=== PATIENT | female | born 1985 | race Two or more races ===

== ENCOUNTER 2020-08-25 13:17 | Emergency (ER) | payer OTHER ==
[~2020-08-25] VITALS: Ht 160 cm; Wt 99.0 kg
[2020-08-25 13:27] VITALS: BP 132/80
[2020-08-25] MEDS ORDERED: SULF1TAB24 PO (15:01)
[2020-08-25] MEDS ORDERED: MUPI15CR8 TP (15:04)
--- NOTE | 2020-08-25 15:04 | PHYS DOC ---
Past History Past Medical History: Other Additional Past Medical Histor: PTSD Past Surgical History: No Surgical History Alcohol Use: None General Adult EDM: Chief Complaint: MEDICAL CLEARANCE HPI: HPI: Patient is a 34-year-old female presents with sores to her right wrist, left elbow, and bilateral toes. Patient states the sores appeared 2 weeks ago and have been painful and itchy. Patient states that she is putting peroxide on the sores at home and tried to cover them. Patient denies fever. Patient reports being methamphetamine user. Patient is here being seen for medical clearance prior to being released to the shelter. Review of Systems: Review of Systems: Constitutional: Denies fever or chills Eyes: Denies change in visual acuity HENT: Denies nasal congestion or sore throat Respiratory: Denies cough or shortness of breath Cardiovascular: Denies chest pain or edema GI: Denies abdominal pain, nausea, vomiting, bloody stools or diarrhea : Denies dysuria Musculoskeletal: Denies back pain or joint pain Integument: Sores to right wrist, left elbow, bilateral toes Neurologic: Denies headache, focal weakness or sensory changes Endocrine: Denies polyuria or polydipsia Lymphatic: Denies swollen glands Psychiatric: Denies depression or anxiety Allergies: Allergies: Allergies Coded Allergies Type Severity Reaction Last Updated Verified escitalopram Allergy Unknown 08/25/20 Yes Physical Exam: PE: Constitutional: Well developed, well nourished, no acute distress, non-toxic appearance. [] HENT: Normocephalic, atraumatic, bilateral external ears normal, oropharynx moist, no oral exudates, nose normal. [] Eyes: PERRLA, EOMI, conjunctiva normal, no discharge. [] Neck: Normal range of motion, no tenderness, supple, no stridor. [] Cardiovascular:Heart rate regular rhythm, no murmur [] Lungs & Thorax: Bilateral breath sounds clear to auscultation [] Abdomen: Bowel sounds normal, soft, no tenderness, no masses, no pulsatile mass es. [] Skin: Purulent cellulitis, redness to bilateral toes. Red sore to right breast and left elbow. Back: No tenderness, no CVA tenderness. [] Extremities: No tenderness, no cyanosis, no clubbing, ROM intact, no edema. [] Neurologic: Alert and oriented X 3, normal motor function, normal sensory function, no focal deficits noted. [] Psychologic: Affect normal, judgement normal, mood normal. [] Current Patient Data: Vital Signs: Vital Signs Date Time Temp Pulse Resp B/P (MAP) Pulse Ox O2 Delivery O2 Flow Rate FiO2 08/25/20 13:27 98.9 110 20 132/80 (97) 100 Room Air EKG: EKG: [] Radiology/Procedures: Radiology/Procedures: [] Heart Score: Risk Factors: Risk Factors: DM, Current or recent (<one month) smoker, HTN, HLP, family history of CAD, obesity. Risk Scores: Score 0 - 3: 2.5% MACE over next 6 weeks - Discharge Home Score 4 - 6: 20.3% MACE over next 6 weeks - Admit for Clinical Observation Score 7 - 10: 72.7% MACE over next 6 weeks - Early Invasive Strategies Course & Med Decision Making: Course & Med Decision Making Pertinent Labs and Imaging studies reviewed. (See chart for details) []Patient is a 34-year-old female presents with sores to her right wrist, left elbow, and bilateral toes. Patient states the sores appeared 2 weeks ago and have been painful and itchy. Patient states that she is putting peroxide on the sores at home and tried to cover them. Patient denies fever. Patient reports being methamphetamine user. Patient is here being seen for medical clearance prior to being released to the shelter. Patient dcd home with bactroban and bactrim for skin infection. Jessie Disclaimer: Jessie Disclaimer: This electronic medical record was generated, in whole or in part, using a voice recognition dictation system. Departure Departure: Impression: Primary Impression: Skin infection Disposition: DC/TRF OTHER TYPE INSTITUTI Condition: GOOD Referrals: PCP,NO (PCP) Patient Instructions: Skin Infections Additional Instructions: EMERGENCY DEPARTMENT GENERAL DISCHARGE INSTRUCTIONS Thank you for coming to [facility] (ED) today and trusting us with you care. We trust that you had a positivie experience in our Emergency Department. If you wish to speak to the department management, you may call the director at [phone]. YOUR FOLLOW UP INSTRUCTIONS ARE FOLLOWS: 1. Do you have a private Doctor? If you do not have a private doctor, please ask for a resource list of physicians or clinics that may be able to assist you with follow up care. 2. The Emergency Physician has interpreted your x-rays. The X-Ray specialist will also review them. If there is a change in the findings, you will be notified in 48 hours when at all possible. 3. A lab test or culture has been done, your results will be reviewed and you will be notified if you need a change in treatment. ADDITIONAL INSTRUCTIONS AND INFORMATION: 1. Your care today has been supervised by a physician who is specially trained in emergency care. Many problems require more than one evaluation for a complete diagnosis and treatment. We recommend that you schedule your follow up appointment as recommended to ensure complete treatment of you illness or injury. If you are unable to obtain follow up care and continue to have a problem, or if your condition worsens, we recommend that you return to the ED. 2. We are not able to safely determine your condition over the phone nor are we able to give sound medical advice over the phone. For these safety reasons, if you call for medical advice we will ask you to come to the ED for further evaluation. 3. If you have any questions regarding these discharge instructions please call the ED at [phone]. SAFETY INFORMATION: In the interest of safety, wellness, and injury prevention; we encourage you to wear your sealbelt, if you smoke; quite smoking, and we encourage family to use a protective helmet for bicycling and other sporting events that present an increased risk for head injury. IF YOUR SYMPTOMS WORSEN OR NEW SYMPTOMS DEVELOP, OR YOU HAVE CONCERNS ABOUT YOUR CONDITION; OR IF YOUR CONDITION WORSENS WHILE YOU ARE WAITING FOR YOUR FOLLOW UP APPOINTMENT; EITHER CONTACT YOUR PRIMARY CARE DOCTOR, THE PHYSICIAN WHOSE NAME AND NUMBER YOU WERE GIVEN, OR RETURN TO THE ED IMMEDIATELY. Scripts Mupirocin Calcium (MUPIROCIN) 15 Gm Cream..g. 1 SINTIA TP TID for infection for 7 Days, #15 GM 0 Refills Prov: JAMIE MUNOZ APRN 08/25/20 Sulfamethoxazole/Trimethoprim (BACTRIM DS TABLET) 1 Each Tablet 1 EACH PO BID for skin infection for 7 Days, #14 TAB Take 1 p.o. twice daily for 7 days. Prov: JAMIE MUNOZ APRN 08/25/20 JAMIE MUNOZ APRN Aug 25, 2020 15:04
== END 2020-08-25 15:17 | disposition short-term general hospital (02) ==
LOC: ER 13:17
DX: L08.89 Other specified local infections of the skin and subcutaneous tissue (principal); L29.9 Pruritus, unspecified; F43.10 Post-traumatic stress disorder, unspecified; Z88.8 Allergy status to other drugs, medicaments and biological substances
CPT/HCPCS: 99285

== ENCOUNTER 2021-02-24 18:31 | Emergency (ER) | payer SELFPAY ==
[~2021-02-24] VITALS: Ht 160 cm; Wt 95.4 kg
[2021-02-24 18:31] VITALS: BP 118/70
[~2021-02-24 18:31] MED LIST: MUPI15CR8 TP; SULF1TAB24 PO
--- NOTE | 2021-02-24 19:19 | PHYS DOC ---
Past History Past Medical History: Other Additional Past Medical Histor: PTSD Past Surgical History: No Surgical History Alcohol Use: None General Adult EDM: Chief Complaint: SORE THROAT HPI: HPI: Patient is a 35-year-old female who presents to the ER today for sore/swollen throat, yellow productive cough, fever that started 2 days ago. Patient reports that her temperature at home was 100.3 degrees. She reports receiving only one of her Covid vaccines. Patient denies fevers, nausea, vomiting, diarrhea, sick contacts, travel, difficulty swallowing, phonation changes, difficulty ma intaining secretions, chest pain. She reports that she is short of breath but she thinks that is due to her drug use. Patient reports that she recently relapsed and is anxious. Review of Systems: Review of Systems: 14 body systems of the review of systems have been reviewed. See HPI for pertinent positive and negative responses, otherwise all other systems are negative, nonpertinent or noncontributory Allergies: Allergies: Allergies Coded Allergies Type Severity Reaction Last Updated Verified escitalopram Allergy Unknown 08/25/20 Yes Physical Exam: PE: Constitutional: Well developed, well nourished, no acute distress, non-toxic appearance. [] HENT: Normocephalic, atraumatic, bilateral external ears normal, oropharynx moist with mild erythema, no tonsillar enlargement, postnasal drainage present, no oral exudates, nose normal, ulceration noted to the left side of patient's tongue, no trismus, uvula midline, no phonation changes [] Eyes: PERRLA, conjunctiva normal, no discharge. [] Neck: Normal range of motion, no tenderness, supple, no stridor. Right tonsillar lymphadenopathy [] Cardiovascular:Heart rate regular rhythm, no murmur [] Lungs & Thorax: Bilateral breath sounds clear to auscultation [] Abdomen: Bowel sounds normal, soft, no tenderness, no masses, no pulsatile masses. [] Skin: Warm, dry, no erythema, no rash. [] Back: Normal range of motion Extremities: No tenderness, no cyanosis, no clubbing, ROM intact, no edema. [] Neurologic: Alert and oriented X 3, normal motor function, normal sensory function, no focal deficits noted. [] Psychologic: Affect normal, judgement normal, mood normal. [] Current Patient Data: Vital Signs: Vital Signs Date Time Temp Pulse Resp B/P (MAP) Pulse Ox O2 Delivery O2 Flow Rate FiO2 02/24/21 18:31 98.1 90 20 118/70 98 Room Air EKG: EKG: [] Radiology/Procedures: Radiology/Procedures: [] Heart Score: C/O Chest Pain: No Risk Factors: Risk Factors: DM, Current or recent (<one month) smoker, HTN, HLP, family history of CAD, obesity. Risk Scores: Score 0 - 3: 2.5% MACE over next 6 weeks - Discharge Home Score 4 - 6: 20.3% MACE over next 6 weeks - Admit for Clinical Observation Score 7 - 10: 72.7% MACE over next 6 weeks - Early Invasive Strategies Course & Med Decision Making: Course & Med Decision Making Pertinent Labs and Imaging studies reviewed. (See chart for details) Patient is a 35-year-old female being seen in the ER today for sore/swollen throat, yellow productive cough, and fever. She was tested in the ER for strep throat and COVID-19. The rapid strep test was negative. The Covid test is pending and patient will be notified of results when they are available. She is educated on self-isolation pending the results of this test. Air Button Disclaimer: Air Button Disclaimer: This electronic medical record was generated, in whole or in part, using a voice recognition dictation system. Departure Departure: Impression: Primary Impression: Pharyngitis with viral syndrome Disposition: HOME / SELF CARE / HOMELESS Condition: GOOD Referrals: PCP,NO (PCP) Patient Instructions: Viral Pharyngitis Additional Instructions: Thank you for choosing [facility] and allowing me to participate in your care. As we have discussed, your findings indicate viral pharyngitis. At this time we cannot rule out a COVID-19 infection. We will contact you with the results of your COVID-19 and throat culture when they are received they usually come back into days. Please self isolate until you receive your results. As we have discussed, the treatment includes Tylenol and ibuprofen for pain and fevers, warm salt water gargles. Please follow up with your primary care provider tomorrow regarding your ER visit. If your symptoms worsen or you develop difficulty swallowing, difficulty maintaining secretions, high fever, shortness of breath, chest pain, please return. ANA CROWELL LARD REFINER Feb 24, 2021 19:19
== END 2021-02-24 19:52 | disposition home or self-care (01) ==
LOC: ER 18:31
DX: J02.8 Acute pharyngitis due to other specified organisms (principal); B97.89 Other viral agents as the cause of diseases classified elsewhere; Z20.822 Contact with and (suspected) exposure to COVID-19; Z88.8 Allergy status to other drugs, medicaments and biological substances
CPT/HCPCS: 87070; 87880; 99283; C9803; U0003

== ENCOUNTER 2021-03-09 13:30 | Emergency (ER) | payer SELFPAY ==
[~2021-03-09] VITALS: Ht 157.5 cm; Wt 95.5 kg
[2021-03-09 13:30] VITALS: BP 140/77
--- NOTE | 2021-03-09 14:18 | PHYS DOC ---
Past History Past Medical History: Anxiety, Depression, Other Additional Past Medical Histor: PTSD (CARISA LANDRY Sam SPANISH TRANSLATOR) Past Surgical History: No Surgical History (CARISA LANDRY Sam SPANISH TRANSLATOR) Alcohol Use: None (CARISA LANDRY Sam SPANISH TRANSLATOR) Adult General Chief Complaint Chief Complaint: SORE THROAT HPI HPI Patient is a 35-year-old female patient with history of anxiety, depression, who presents to the ED today complaining of sore throat intermittently for 1-1/2 weeks. Patient denies any difficulty with swallowing. Denies any fever. She states there is a new Covid virus involving and she would like to be tested for it. She also states she has been on and off her psych medicines. She states she currently feels a little agitated because of this. She is requesting to go to psych. Denies any suicidal or homicidal ideations. (CARISA LANDRY Sam SPANISH TRANSLATOR) Review of Systems Review of Systems Constitutional: Denies fever or chills [] Eyes: Denies change in visual acuity, redness, or eye pain [] HENT: Reports sore throat. Denies nasal congestion Respiratory: Denies cough or shortness of breath [] Cardiovascular: No additional information not addressed in HPI [] GI: Denies abdominal pain, nausea, vomiting, bloody stools or diarrhea [] : Denies dysuria or hematuria [] Musculoskeletal: Denies back pain or joint pain [] Integument: Denies rash or skin lesions [] Neurologic: Denies headache, focal weakness or sensory changes [] Psych: Reports agitation All other systems were reviewed and found to be within normal limits, except as documented in this note. (CARISA LANDRY Sam SPANISH TRANSLATOR) Allergies Allergies Allergies Coded Allergies Type Severity Reaction Last Updated Verified escitalopram Allergy Unknown 08/25/20 Yes (GRISCAIRSA Sam SPANISH TRANSLATOR) Physical Exam Physical Exam Constitutional: Well developed, well nourished, no acute distress, non-toxic appearance. [] HENT: Normocephalic, atraumatic, bilateral external ears normal, oropharynx moist, no oral exudates, nose normal. [] Eyes: PERRLA, EOMI, conjunctiva normal, no discharge. [] Neck: Normal range of motion, no tenderness, supple, no stridor. [] Cardiovascular:Heart rate regular rhythm, no murmur [] Lungs & Thorax: Bilateral breath sounds clear to auscultation [] Abdomen: Bowel sounds normal, soft, no tenderness, no masses, no pulsatile masses. [] Skin: Warm, dry, no erythema, no rash. [] Back: No tenderness, no CVA tenderness. [] Extremities: No tenderness, no cyanosis, no clubbing, ROM intact, no edema. [] Neurologic: Alert and oriented X 3, normal motor function, normal sensory function, no focal deficits noted. [] Psychologic: Flat affect, appears anxious (CARISA LANDRY APRN) EKG EKG [] (CARISA LANDRY APRN) Radiology/Procedures Radiology/Procedures [] (CARISA LANDRY APRN) Heart Score C/O Chest Pain: N/A Risk Factors: Risk Factors: DM, Current or recent (<one month) smoker, HTN, HLP, family history of CAD, obesity. Risk Scores: Risk Factors: DM, Current or recent (<one month) smoker, HTN, HLP, family history of CAD, obesity. (CARISA LANDRY APRN) Course & Med Decision Making Course & Med Decision Making Pertinent Labs and Imaging studies reviewed. (See chart for details) This is a 35-year-old female patient presenting to the ED today with sore throat for 1-1/2 weeks. Patient requesting to be tested for COVID-19. Patient's airways open, there is no erythema or any lesions on the back of her throat. She is tolerating her secretions well. She was tested for COVID-19. She is also requesting to go to psych because she feels agitated after being on and off her psych meds. She is currently not suicidal or homicidal. Spoke to [facility] team. He recommended patient to go to [facility] right now. He contacted [facility] to let them know patient is coming. (CARISA LANDRY APRN) Dragon Disclaimer Dragon Disclaimer This electronic medical record was generated, in whole or in part, using a voice recognition dictation system. (CARISA LANDRY APRN) Departure Departure: Impression: Primary Impression: Acute pharyngitis Additional Impressions: Agitation Person under investigation for COVID-19 Disposition: HOME / SELF CARE / HOMELESS Condition: STABLE Referrals: PCP,NO (PCP) Please head to [facility] [address] [address] [phone] Patient Instructions: Viral Pharyngitis Additional Instructions: You were tested for COVID-19, we will call you when results are back. Please head to [facility] for evaluation Attending Signature Attending Signature I have reviewed the PA/CELL COVERER's note and plan of care. I was available for consultation as needed during the patient's visit in the emergency department. I agree with the clinical impression, plan, and disposition. (LALITHA TOVAR DO) Problem Qualifiers Primary Impression: Acute pharyngitis Pharyngitis/tonsillitis etiology: unspecified etiology Qualified Codes: J02.9 - Acute pharyngitis, unspecified CARISA LANDRY APRN Mar 09, 2021 14:18 LALITHA TOVAR DO Mar 09, 2021 21:08
== END 2021-03-09 14:24 | disposition home or self-care (01) ==
LOC: ER 13:30
DX: J02.9 Acute pharyngitis, unspecified (principal); R45.1 Restlessness and agitation; F41.9 Anxiety disorder, unspecified; F32.9 Major depressive disorder, single episode, unspecified; F43.10 Post-traumatic stress disorder, unspecified; Z20.822 Contact with and (suspected) exposure to COVID-19; Z88.8 Allergy status to other drugs, medicaments and biological substances
CPT/HCPCS: 99283; C9803; U0003

== ENCOUNTER 2021-03-25 15:13 | Emergency (ER) | payer MEDICAID ==
[~2021-03-25] VITALS: Ht 157.5 cm; Wt 95.0 kg
[2021-03-25 15:30] VITALS: BP 130/63
[2021-03-25] MEDS ORDERED: IV NORMAL SALINE 1,000ML 1,000 ML IV ONE (15:45)
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
[2021-03-25 15:51] LABS: BILIRUBIN,URINE NEG (NEG); CLARITY,URINE HAZY; COLOR,URINE YELLOW; GLUCOSE,URINE NEG (NEG); NITRITE,URINE NEG (NEG); UROBILINOGEN,URINE 0.2 mg/dL (0.2 mg/dL)
[2021-03-25 15:57] LABS: BARBITURATES NEG (NEG); BENZODIAZEPINES NEG (NEG); CANNABINOIDS NEG (NEG); COCAINE NEG (NEG); METHADONE NEG (NEG); OPIATES NEG (NEG); PHENCYCLIDINE NEG (NEG)
[2021-03-25 16:03] LABS: BACTERIA,URINE FEW /HPF (0-FEW); SQUAMOUS EPITHELIAL CELL,UR MANY /LPF
[2021-03-25 16:06] LABS: AMPHETAMINE/METHAMPHETAMINE POS (NEG)
[2021-03-25 16:12] LABS: BASO % 1 % (0-3); EOS # 0.1 x10^3/uL (0.0-0.7); EOS % 2 % (0-3); HEMATOCRIT 38.3 % (36.0-47.0); HEMOGLOBIN 12.4 g/dL (12.0-15.5); LYMPH # 2.4 x10^3/uL (1.0-4.8); LYMPH % 34 % (24-48); MEAN CORPUSCULAR HEMOGLOBIN 30 pg (25-35); MEAN CORPUSCULAR HGB CONC 32 g/dL (31-37); MEAN CORPUSCULAR VOLUME 92 fL (79-100); MONO # 0.5 x10^3/uL (0.0-1.1); MONO % 8 % (0-9); NEUT # 3.9 x10^3uL (1.8-7.7); NEUT % 56 % (31-73); PLATELET COUNT 268 x10^3/uL (140-400); RED BLOOD COUNT 4.16 x10^6/uL (3.50-5.40); WHITE BLOOD COUNT 6.9 x10^3/uL (4.0-11.0)
[2021-03-25 16:17] LABS: CALCIUM 8.3 mg/dL (8.5-10.1); CREATININE 0.7 mg/dL (0.6-1.0); GFR 95.2; POTASSIUM 3.6 mmol/L (3.5-5.1)
[2021-03-25 16:23] LABS: ALBUMIN 3.5 g/dL (3.4-5.0); ALBUMIN/GLOBULIN RATIO 0.9 (1.0-1.7); TOTAL BILIRUBIN 0.5 mg/dL (0.2-1.0); TOTAL PROTEIN 7.2 g/dL (6.4-8.2)
== END 2021-03-25 19:12 ==
LOC: ER 15:13
DX: F41.9 Anxiety disorder, unspecified (principal); F32.9 Major depressive disorder, single episode, unspecified; F15.10 Other stimulant abuse, uncomplicated; F43.10 Post-traumatic stress disorder, unspecified; Z20.822 Contact with and (suspected) exposure to COVID-19
CPT/HCPCS: 36415; 80053; 80307; 81001; 81025; 85025; 87086; 87426; 99283; C9803; U0003

== ENCOUNTER 2021-10-11 20:49 | Emergency (ER) | payer MEDICAID ==
[~2021-10-11] VITALS: Ht 157.5 cm; Wt 95.0 kg
--- NOTE | 2021-10-11 21:08 | PHYS DOC ---
Past History Past Medical History: Anxiety, Depression, Other Additional Past Medical Histor: PTSD, OCD, ODD Past Surgical History: No Surgical History Alcohol Use: Rarely General Adult EDM: Chief Complaint: DRUG ABUSE HPI: HPI: ".. I had been clean over a year... but I screwed up... I need to get back in a program.. I did maybe $20 -$ 40 meth.. .. I am fucked up... having bad thoughts.. I have been to [facility] before.. I got to talk to some one.. " Patient is a 36 year old female who presents with above history of failing to maintain sobriety. Patient has started using methamphetamine again. Patient states she is becoming very depressed and having bad thoughts about herself. Patient does not have a specific suicide plan., But has some thoughts of suicide. Patient is a PD referral for abnormal behavior. Patient admits to using meth today. Patient does have history of previous evaluation at [facility]. No recent travel. No specific ill contacts. No history of trauma. No history of fever or chills. No history immunosuppression. Review of Systems: Review of Systems: Constitutional: Denies fever or chills Eyes: Denies change in visual acuity HENT: Denies nasal congestion or sore throat Respiratory: Denies cough or shortness of breath Cardiovascular: Denies chest pain or edema GI: Denies abdominal pain, nausea, vomiting, bloody stools or diarrhea : Denies dysuria Musculoskeletal: Denies back pain or joint pain Integument: Denies rash Neurologic: Denies headache, focal weakness or sensory changes Endocrine: Denies polyuria or polydipsia Lymphatic: Denies swollen glands Psychiatric: Complains of depression and anxiety Family History: Family History: Noncontributory to presentation Current Medications: Current Meds: See nursing for home meds Allergies: Allergies: Allergies Coded Allergies Type Severity Reaction Last Updated Verified escitalopram Allergy Unknown 08/25/20 Yes Physical Exam: PE: Constitutional: Moderate acute emotional distress, appearance of someone coming off of methamphetamine high. Twitching HENT: Normocephalic, atraumatic, bilateral external ears normal, oropharynx moist, no oral exudates, nose normal. [] Eyes: PERRLA, EOMI, conjunctiva injection, no discharge. [] Neck: Normal range of motion, no tenderness, supple, no stridor. [] Cardiovascular: Tachycardia heart rate regular rhythm, no murmur [] Lungs & Thorax: Bilateral breath sounds equal apex scattered wheezes on auscultation [] Abdomen: Bowel sounds normal, soft, no tenderness, no masses, no pulsatile masses. Obese. Skin: Warm, dry, no erythema, no rash. Tattoos Back: No tenderness, no CVA tenderness. [] Extremities: No tenderness, no cyanosis, no clubbing, ROM intact, no edema. No cording Neurologic: Alert and oriented X 3, normal motor function, normal sensory fun ction, no focal deficits noted. [] DTRs +2 patella and brachial. Psychologist Personnel equal. No drift. Ambulatory without problems. Psychologic: Affect anxious, judgement normal, mood vacillates between happy and sad. States she is having dark thoughts. EKG: EKG: My interpretation EKG shows sinus tachycardia at 114 bpm. Some anterior lateral strain pattern. But no findings acute STEMI with contralateral changes. Time of EKG is 2057 hrs. [] Radiology/Procedures: Radiology/Procedures: [][place] [address] IMAGING REPORT Signed PATIENT: STEPHAN CHRISTIAN ACCOUNT: [id number] : 1985 LOCATION: ER AGE: 36 SEX: F EXAM STATUS: REG ER ORD. PHYSICIAN: VANESSA AL MD REASON: tachy, burning PROCEDURE: CHEST AP ONLY EXAM: CHEST ONE VIEW. HISTORY: Tachycardia, chest pain. COMPARISON: None. FINDINGS: A frontal view of the chest is obtained. There are no confluent infiltrates. There is no pneumothorax or pleural effusion. The heart is not enlarged. IMPRESSION: 1. No confluent infiltrates. Electronically signed by: Tien Mcgrath MD (10/11/2021 11:05 PM) [facility] DICTATED AND SIGNED BY: GERSON MCGRATH MD DATE: 10/11/21 5284 CC: VANESSA AL MD; PCP,NO ~MTH0 0 Heart Score: C/O Chest Pain: No HEART Score for Chest Pain: HEART Score for Chest Pain Response (Comments) Value History Moderately Suspicious 1 ECG Nonspecific Repolarizatio 1 Age < 45 0 Risk Factors 1 or 2 Risk Factors 1 Troponin < Normal Limit 0 Total 3 Risk Factors: Risk Factors: DM, Current or recent (<one month) smoker, HTN, HLP, family hi story of CAD, obesity. Risk Scores: Score 0 - 3: 2.5% MACE over next 6 weeks - Discharge Home Score 4 - 6: 20.3% MACE over next 6 weeks - Admit for Clinical Observation Score 7 - 10: 72.7% MACE over next 6 weeks - Early Invasive Strategies Course & Med Decision Making: Course & Med Decision Making Pertinent Labs and Imaging studies reviewed. (See chart for details) Patient push fluids. Avoid further methamphetamine use. SeePAT eval. Plan discharged to [facility] after hydration. Impression: 1. Methamphetamine abuse 2. Elevated CK 2644- Repeat 3. Mild leukocytosis 13.1 4. Dehydration Possible lost information. See Downtime tickert [id number] [] Dragon Disclaimer: Dragon Disclaimer: This electronic medical record was generated, in whole or in part, using a voice recognition dictation system. Departure Departure: Referrals: PCP,NO (PCP) Jessie Disclaimer This chart was dictated in whole or in part using Voice Recognition software in a busy, high-work load, and often noisy Emergency Department environment. It may contain unintended and wholly unrecognized errors or omissions. VANESSA AL MD Oct 11, 2021 21:08
[2021-10-11] MEDS ORDERED: IV RINGERS SOLUTION,LACTATED 1,000 ML IV SCH (21:45)
[2021-10-11 22:51] LABS: BASO # 0.1 x10^3/uL (0.0-0.2); BASO % 0 % (0-3); EOS # 0.1 x10^3/uL (0.0-0.7); EOS % 1 % (0-3); HEMATOCRIT 38.1 % (36.0-47.0); HEMOGLOBIN 13.1 g/dL (12.0-15.5); LYMPH # 3.9 x10^3/uL (1.0-4.8); LYMPH % 30 % (24-48); MEAN CORPUSCULAR HEMOGLOBIN 31 pg (25-35); MEAN CORPUSCULAR HGB CONC 34 g/dL (31-37); MEAN CORPUSCULAR VOLUME 89 fL (79-100); MONO # 1.3 x10^3/uL (0.0-1.1); MONO % 10 % (0-9); NEUT # 7.8 x10^3uL (1.8-7.7); NEUT % 60 % (31-73); PLATELET COUNT 255 x10^3/uL (140-400); RED CELL DISTRIBUTION WIDTH 12.2 % (11.5-14.5); WHITE BLOOD COUNT 13.1 x10^3/uL (4.0-11.0)
--- NOTE | 2021-10-11 23:08 | RAD ---
EXAM: CHEST ONE VIEW. HISTORY: Tachycardia, chest pain. COMPARISON: None. FINDINGS: A frontal view of the chest is obtained. There are no confluent infiltrates. There is no pneumothorax or pleural effusion. The heart is not en larged. IMPRESSION: 1. No confluent infiltrates. Electronically signed by: Tien Mcgrath MD (10/11/2021 11:05 PM) [facility]
[2021-10-11 23:10] LABS: CLARITY,URINE CLEAR; COLOR,URINE YELLOW; GLUCOSE,URINE NEG (NEG); NITRITE,URINE NEG (NEG)
[2021-10-11 23:11] LABS: BACTERIA,URINE FEW /HPF (0-FEW); RBC,URINE 0 /HPF (0-2); SQUAMOUS EPITHELIAL CELL,UR MOD /LPF
[2021-10-11 23:14] LABS: AMPHETAMINE/METHAMPHETAMINE POS (NEG); BARBITURATES NEG (NEG); BENZODIAZEPINES NEG (NEG); CANNABINOIDS NEG (NEG); COCAINE NEG (NEG); METHADONE NEG (NEG); OPIATES NEG (NEG); PHENCYCLIDINE NEG (NEG)
[2021-10-11 23:21] LABS: CALCIUM 9.4 mg/dL (8.5-10.1); GFR 62.7; POTASSIUM 3.3 mmol/L (3.5-5.1)
[2021-10-11 23:34] LABS: ALBUMIN 4.2 g/dL (3.4-5.0); DIRECT BILIRUBIN 0.2 mg/dL (0.0-0.2); MAGNESIUM 1.8 mg/dL (1.8-2.4); TOTAL BILIRUBIN 1.3 mg/dL (0.2-1.0); TOTAL PROTEIN 8.2 g/dL (6.4-8.2)
[2021-10-11 23:53] LABS: INFLUENZA A PATIENT NEGATIVE (NEGATIVE); INFLUENZA B PATIENT NEGATIVE (NEGATIVE)
[2021-10-12] MEDS ORDERED: SODIUM BICARB ADULT 8.4% 50 MEQ/50 ML DISP.SYRIN. IV ONE (01:45)
[2021-10-12] MEDS ORDERED: IV RINGERS SOLUTION,LACTATED 1,000 ML IV ONE (01:45)
[2021-10-12 03:00] VITALS: BP 120/84
--- NOTE | 2021-10-12 06:40 | EKG ---
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
== END 2021-10-12 04:15 | disposition short-term general hospital (02) ==
LOC: ER 20:49
DX: F15.10 Other stimulant abuse, uncomplicated (principal); R74.8 Abnormal levels of other serum enzymes; D72.829 Elevated white blood cell count, unspecified; E86.0 Dehydration; F41.9 Anxiety disorder, unspecified; F32.9 Major depressive disorder, single episode, unspecified; Z20.822 Contact with and (suspected) exposure to COVID-19; Z88.8 Allergy status to other drugs, medicaments and biological substances
CPT/HCPCS: 36415; 71045; 80048; 80076; 80307; 81001; 81025; 82550; 83690; 83735; 83880; 84443; 84484; 85025; 85610; 85730; 87428; 93005; 96361; 96374; 99285; G0480; J7120

== ENCOUNTER 2021-10-31 19:32 | Emergency (ER) | payer MEDICAID ==
[~2021-10-31] VITALS: Ht 157.5 cm; Wt 95.0 kg
--- NOTE | 2021-10-31 19:35 | PHYS DOC ---
Past History Past Medical History: Anxiety, Depression, Other Additional Past Medical Histor: PTSD, OCD, ODD Past Surgical History: No Surgical History Smoking: Cigarettes Alcohol Use: Rarely Drug Use: Amphetamine, Marijuana General Adult HPI: HPI: ". I back on the meth.. I meenu got off my depression meds..and I started using meth again.. I was doing okay after my stay at [facility].. .. but I started using again.. smoking mainly.. I did about $20.. today..." Patient is a 36 year old female who presents with above hx and complaints of need of medication adjustment or be placed back on her antidepressant meds. Patient states she did well when she was discharged to [facility] Pt. was off meth for period of time but then relapsed into daily use of methamphetamine.. Pt. denies any recent travel. No specific ill contacts. No history of trauma. No history immunosuppression. Patient's daily use of methamphetamines anywhere from $20- $80 per day. Patient currently only smoking methamphetamine. Patient does have past history of anxiety, depression, PTSD, OCD, ODD, and panic disorder. Patient denies any fever or chills. Patient has not gotten flu vaccination. Not has not gotten COVID vaccination. Review of Systems: Review of Systems: Constitutional: Denies fever or chills Eyes: Denies change in visual acuity HENT: Denies nasal congestion or sore throat Respiratory: Complains of shortness of breath Cardiovascular: Denies chest pain or edema GI: Denies abdominal pain, nausea, vomiting, bloody stools or diarrhea : Denies dysuria Musculoskeletal: Denies back pain or joint pain Integument: Denies rash Neurologic: Denies headache, focal weakness or sensory changes Endocrine: Denies polyuria or polydipsia Lymphatic: Denies swollen glands Psychiatric: Complains of depression and anxiety Family History: Family History: Noncontributory to presentation Current Medications: Current Meds: See nursing for home meds Allergies: Allergies: Allergies Coded Allergies Type Severity Reaction Last Updated Verified escitalopram Allergy Unknown 08/25/20 Yes Physical Exam: PE: Constitutional: In acute emotional distress, non-toxic appearance. [] HENT: Normocephalic, atraumatic, bilateral external ears normal, oropharynx moist, no oral exudates, nose injected turbinates. Eyes: PERRLA, EOMI, conjunctiva normal, no discharge. [] Neck: Normal range of motion, no tenderness, supple, no stridor. [] Cardiovascular:Heart rate regular rhythm, no murmur [] Lungs & Thorax: Bilateral breath sounds equal apex with few scattered wheezes auscultation [] Abdomen: Bowel sounds normal, soft, no tenderness, no masses, no pulsatile masses. [] Skin: Warm, dry, no erythema, no rash. [] Back: No tenderness, no CVA tenderness. [] Extremities: No tenderness, no cyanosis, no clubbing, ROM intact, no edema. No cording. Neurologic: Alert and oriented X 3, normal motor function, normal sensory function, no focal deficits noted. [] Twitchy. Psychologic: Affec anxious,, judgement normal, mood normal. [] EKG: EKG: My interpretation of EKG shows a sinus rhythm at 85 bpm. No acute morphology. Time of EKG is 2008 hrs. [] Radiology/Procedures: Radiology/Procedures: [][place] [address] IMAGING REPORT Signed PATIENT: STEPHAN CHRISTIAN ACCOUNT: [id number] : 1985 LOCATION: ER AGE: 36 SEX: F EXAM STATUS: REG ER ORD. PHYSICIAN: VANESSA AL MD REASON: Meth use, tachy, dyspnea PROCEDURE: PORTABLE CHEST 1V EXAMINATION: XR CHEST 1V. HISTORY: 36 years Female Reason: Meth use, tachy, dyspnea / . COMPARISON: None. Findings: The lungs are clear. The heart size is normal. There is no effusion or pneumothorax. The mediastinum and cortez appear unremarkable. Impression: Unremarkable study. Electronically signed by: Yaritza Javier MD (10/31/2021 8:45 PM) [id number] DICTATED AND SIGNED BY: YARITZA JAVIER MD DATE: 10/31/212044 CC: VANESSA AL MD; PCP,NO ~MTH0 0 Heart Score: C/O Chest Pain: No HEART Score for Chest Pain: HEART Score for Chest Pain Response (Comments) Value History Slighlty/Non-Suspicious 0 ECG Normal 0 Age < 45 0 Risk Factors 1 or 2 Risk Factors 1 Troponin < Normal Limit 0 Total 1 Risk Factors: Risk Factors: DM, Current or recent (<one month) smoker, HTN, HLP, family history of CAD, obesity. Risk Scores: Score 0 - 3: 2.5% MACE over next 6 weeks - Discharge Home Score 4 - 6: 20.3% MACE over next 6 weeks - Admit for Clinical Observation Score 7 - 10: 72.7% MACE over next 6 weeks - Early Invasive Strategies Course & Med Decision Making: Course & Med Decision Making Pertinent Labs and Imaging studies reviewed. (See chart for details) Pt. to keep follow up with primary, counselor and upper caser. See PAT evaluation Impression: 1. Methamphetamine abuse 2. Depression 3. Anxiety 4. Elevated CK 912 [] Dragon Disclaimer: Dragon Disclaimer: This electronic medical record was generated, in whole or in part, using a voice recognition dictation system. Departure Departure: Referrals: PCP,NO (PCP) Jessie Disclaimer This chart was dictated in whole or in part using Voice Recognition software in a busy, high-work load, and often noisy Emergency Department environment. It may contain unintended and wholly unrecognized errors or omissions. VANESSA AL MD Oct 31, 2021 19:35
[2021-10-31] MEDS ORDERED: IV RINGERS SOLUTION,LACTATED 1,000 ML IV SCH (20:00)
[2021-10-31 20:48] LABS: BASO # 0.1 x10^3/uL (0.0-0.2); BASO % 1 % (0-3); EOS # 0.3 x10^3/uL (0.0-0.7); EOS % 3 % (0-3); HEMATOCRIT 36.3 % (36.0-47.0); HEMOGLOBIN 12.1 g/dL (12.0-15.5); LYMPH # 2.4 x10^3/uL (1.0-4.8); LYMPH % 24 % (24-48); MEAN CORPUSCULAR HEMOGLOBIN 30 pg (25-35); MEAN CORPUSCULAR HGB CONC 33 g/dL (31-37); MEAN CORPUSCULAR VOLUME 91 fL (79-100); MONO # 0.8 x10^3/uL (0.0-1.1); MONO % 8 % (0-9); NEUT # 6.5 x10^3uL (1.8-7.7); NEUT % 64 % (31-73); PLATELET COUNT 332 x10^3/uL (140-400); RED CELL DISTRIBUTION WIDTH 12.5 % (11.5-14.5); WHITE BLOOD COUNT 10.2 x10^3/uL (4.0-11.0)
--- NOTE | 2021-10-31 20:48 | RAD ---
EXAMINATION: XR CHEST 1V. HISTORY: 36 years Female Reason: Meth use, tachy, dyspnea / . COMPARISON: None. Findings: The lungs are clear. The heart size is normal. There is no effusion or pneumothorax. The mediastinum and cortez appear unremarkable. Impression: Unremarkable study. Electronically signed by: Kristofer Javier MD (10/31/2021 8:45 PM) [id number]
[2021-10-31 20:54] LABS: BARBITURATES NEG (NEG); BENZODIAZEPINES NEG (NEG); CANNABINOIDS NEG (NEG); COCAINE NEG (NEG); METHADONE NEG (NEG); OPIATES NEG (NEG); PHENCYCLIDINE NEG (NEG)
[2021-10-31 20:56] LABS: CLARITY,URINE CLEAR; COLOR,URINE YELLOW; GLUCOSE,URINE NEG (NEG); NITRITE,URINE NEG (NEG)
[2021-10-31 20:57] LABS: BACTERIA,URINE FEW /HPF (0-FEW); SQUAMOUS EPITHELIAL CELL,UR MOD /LPF
[2021-10-31 20:58] LABS: AMPHETAMINE/METHAMPHETAMINE POS (NEG); CALCIUM 8.8 mg/dL (8.5-10.1); CREATININE 0.7 mg/dL (0.6-1.0); GFR 94.7
[2021-10-31 21:01] LABS: INFLUENZA A PATIENT NEGATIVE (NEGATIVE); INFLUENZA B PATIENT NEGATIVE (NEGATIVE)
[2021-10-31 21:14] LABS: ALBUMIN 3.5 g/dL (3.4-5.0); DIRECT BILIRUBIN 0.1 mg/dL (0.0-0.2); MAGNESIUM 2.3 mg/dL (1.8-2.4); TOTAL BILIRUBIN 0.3 mg/dL (0.2-1.0); TOTAL PROTEIN 6.9 g/dL (6.4-8.2)
--- NOTE | 2021-10-31 21:41 | EKG ---
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
[2021-10-31 23:22] VITALS: BP 158/91
== END 2021-10-31 23:22 | disposition home or self-care (01) ==
LOC: ER 19:32
DX: F15.10 Other stimulant abuse, uncomplicated (principal); F32.9 Major depressive disorder, single episode, unspecified; F41.9 Anxiety disorder, unspecified; R74.8 Abnormal levels of other serum enzymes; F17.210 Nicotine dependence, cigarettes, uncomplicated; F12.10 Cannabis abuse, uncomplicated; Z20.822 Contact with and (suspected) exposure to COVID-19; Z88.8 Allergy status to other drugs, medicaments and biological substances
CPT/HCPCS: 36415; 71045; 80048; 80076; 80307; 81001; 81025; 82550; 83735; 83880; 84443; 84484; 85025; 87086; 87428; 93005; 96360; 99285; J7120; 87077; 87186